=== PATIENT | female | born 1990 | race Caucasian/White ===

== ENCOUNTER 2019-08-24 12:04 | Observation (INO) | payer OTHER ==
[~2019-08-24] VITALS: Ht 165.1 cm; Wt 91.6 kg
== END 2019-08-24 13:37 | disposition home or self-care (01) ==
LOC: SPU 12:04
PROVIDERS: ADMIT Obstetrics & Gynecology; ATTEND Obstetrics & Gynecology
DX: Z36.83 Encounter for fetal screening for congenital cardiac abnormalities (principal); Z3A.40 40 weeks gestation of pregnancy
CPT/HCPCS: 81002; G0378